=== PATIENT | male | born 1945 | race Hispanic/Latino ===

== ENCOUNTER 2017-02-18 07:13 | Outpatient (CLI) | payer MEDICARE ==
[2017-02-18] MEDS ORDERED: KINEVAC IV ONE (10:21)
[2017-02-18] MEDS ORDERED: WATER FOR INJ (PF) IV SCH (11:00)
--- NOTE | 2017-02-18 14:29 | Nuclear Medicine Report ---
HIDA WITH CCK INDICATION: Gallstone calculus. COMPARISON: None similar at this institution. FINDINGS: Dynamic right upper quadrant imaging performed in the anterior projection over 60 minutes following uneventful intravenous administration of 5 mCi of Technetium 99m Choletec. Prompt and homogenous hepatic radiotracer uptake with subsequent washout seen with gallbladder activity noted conclusively at 120 minutes while small bowel activity seen at 10 minutes. Subsequently, 2.1 mcg of cholecystokinin infused intravenously over a period of 3 minutes with the patient experiencing new abdominal pain. The calculated ejection fraction is 25% (normal greater than 35%). CONCLUSION: Biliary dyskinesia with gallbladder ejection fraction of 25% with patient experiencing new abdominal pain following CCK, as described. Please correlate. Thank you for the opportunity to participate in this patient's care.
== END 2017-02-18 07:14 | disposition home or self-care (01) ==
LOC: NM 07:13
PROVIDERS: ATTEND Surgery
DX: K80.20 Calculus of gallbladder without cholecystitis without obstruction (principal); K82.8 Other specified diseases of gallbladder
CPT/HCPCS: 78227; J2805